=== PATIENT | female | born 1945 | race Caucasian/White ===

== ENCOUNTER → 2016-06-07 | Outpatient (CLI) | payer BC ==
[~2016-06-07] MED LIST: ALUMCHW2 PO; ANSHCCR; ASCO250C3 PO; CETI10CA PO; CHOL100010 PO; CYAN100020 PO; CYAN10004 PO; DEXA0.5S PO; DIPH25TA32 PO; DULO60CA44 PO; FAMOCHW27 PO; LEVAAER2 INH; LEVO150T9 PO; LEVO25TA PO; LINA1CAP PO; OXYM0.0592 NAE; PANT1TAB48 PO; POLYSOL4 OPB; PSEU60TA80 PO; SIME1CAP PO; SPRIN; THYR32.55 PO; TYLOTC500 PO; lactaid
--- NOTE | 2016-06-07 08:11 | DIAGNOSTIC IMAGING REPORT ---
ULTRASOUND RIGHT UPPER QUADRANT ABDOMEN CLINICAL HISTORY: Right upper quadrant abdominal pain. COMPARISON STUDY: Abdominal CT dated 07/12/2014. TECHNIQUE: Real-time, grayscale, and color flow sonography of the right upper quadrant of the abdomen was performed. Images are reviewed in the transverse and longitudinal planes. FINDINGS: Liver: The liver is top normal in size and demonstrates heterogeneously increased echotexture consistent with hepatic steatosis. Fatty sparing is seen adjacent to gallbladder fossa. There is no intrahepatic biliary ductal dilatation. The main portal vein is patent. Gallbladder: The gallbladder is normal in appearance. No gallstones are identified. There is no gallbladder wall thickening or pericholecystic fluid. A sonographic Decekr's sign is reportedly absent. The common bile duct measures up to 0.4 cm in diameter. Pancreas: Visualized portions of the pancreatic head and body are normal in appearance. Right kidney: Survey images of the right kidney demonstrate normal size and echotexture. There is no hydronephrosis. Ascites: None. IMPRESSION: 1. No acute sonographic abnormality is seen in the right upper quadrant. No gallstones are identified. 2. Hepatic steatosis. Electronically signed by: Franco Durham M.D. 06/07/2016 8:09 AM Dictated Date/Time: 06/07/2016 8:08 AM
== END | disposition home or self-care (01) ==
LOC: C.ULTR 07:43
PROVIDERS: ATTEND Family Medicine
DX: R10.11 Right upper quadrant pain (principal); K76.0 Fatty (change of) liver, not elsewhere classified

== ENCOUNTER → 2016-06-11 | Outpatient (CLI) | payer BC ==
[~2016-06-11] MED LIST changes: +SINCALIDE INJ 1.3 MCG in SODIUM CHLORIDE 0.9% 100ML 100 ML IV SCH
--- NOTE | 2016-06-11 10:16 | DIAGNOSTIC IMAGING REPORT ---
NUCLEAR MEDICINE HEPATOBILIARY STUDY WITH EJECTION FRACTION ANALYSIS. CLINICAL HISTORY: Right upper quadrant abdominal pain COMPARISON STUDY: Biliary ultrasound dated 06/07/2016 FINDINGS: The patient was injected with 5.3 mCi of technetium 99m Choletec. Sequential anterior imaging was performed. The gallbladder was first visualized on the 20 minute image. At 1 hour, the patient was administered 1.3 mcg of sincalide utilizing a 30 minute intravenous infusion. There is normal passage of activity into small bowel. The gallbladder ejection fraction is normal measuring 66%. IMPRESSION: Normal study. No evidence of cystic duct obstruction. Normal gallbladder ejection fraction of 66%. Electronically signed by: Santos Carlson M.D. 06/11/2016 10:15 AM Dictated Date/Time: 06/11/2016 10:13 AM
== END | disposition home or self-care (01) ==
LOC: C.NUCL 07:48
PROVIDERS: ATTEND Family Medicine
DX: R10.9 Unspecified abdominal pain (principal)

== ENCOUNTER → 2016-06-15 | Outpatient (CLI) | payer BC ==
[~2016-06-15] MED LIST changes: -SINCALIDE INJ 1.3 MCG in SODIUM CHLORIDE 0.9% 100ML 100 ML IV SCH
--- NOTE | 2016-06-15 12:51 | DIAGNOSTIC IMAGING REPORT ---
RIGHT CLAVICLE 2 VIEWS HISTORY: CLAVICLE PAIN Right COMPARISON: None. FINDINGS: There is no fracture or dislocation. Soft tissues are unremarkable. Mild AC joint arthropathy. IMPRESSION: No fractures within the right clavicle. Electronically signed by: Trenton Mcdaniels M.D. 06/15/2016 12:50 PM Dictated Date/Time: 06/15/2016 12:49 PM
== END | disposition home or self-care (01) ==
LOC: C.RADBC 12:27
PROVIDERS: ATTEND Family Medicine
DX: M89.8X1 Other specified disorders of bone, shoulder (principal)

== ENCOUNTER → 2016-08-02 | Outpatient (CLI) | payer BC ==
[~2016-08-02] MED LIST changes: +ACET-749 PO; +CHOL1000 PO; +DEXL60CA4 PO; +LEVA45AE INH; +LEVO112T4 PO; +ONDA4TAB10 SL; -SPRIN; +SPRIN INH
--- NOTE | 2016-08-02 16:19 | DIAGNOSTIC IMAGING REPORT ---
CHEST 2 VIEWS ROUTINE HISTORY: COUGH COMPARISON: Chest 10/06/2015. FINDINGS: The lungs remain hyperexpanded with apical predominant emphysematous changes. No new focal lung consolidations to suggest pneumonia. No evidence for pulmonary edema. The heart is normal in size. No pleural effusions. No pneumothorax. Possible 9 mm nodule within the periphery the right midlung zone. IMPRESSION: 1. No focal lung consolidations to suggest pneumonia. 2. Emphysema. 3. Possible 9 mm nodule within the right midlung zone. Follow-up nonemergent chest CT is recommended for confirmation. Electronically signed by: Trenton Mcdaniels M.D. 08/02/2016 4:17 PM Dictated Date/Time: 08/02/2016 4:15 PM
== END | disposition home or self-care (01) ==
LOC: C.RADBC 15:56
PROVIDERS: ATTEND Nurse Practitioner
DX: R05 Cough (principal)

== ENCOUNTER → 2016-08-24 | Outpatient (CLI) | payer BC ==
--- NOTE | 2016-08-24 12:52 | DIAGNOSTIC IMAGING REPORT ---
CHEST CT WITHOUT CONTRAST CT DOSE: 344.86 mGy.cm HISTORY: Nodule R91.8 Abnormal chest x-ray with multiple lung [id number] TECHNIQUE: Multiaxial CT images of the chest were performed without contrast. COMPARISON: Chest dated 08/02/2016 FINDINGS: The lungs are clear. The mediastinal vascular structures are within normal limits. No mediastinal or hilar lymphadenopathy. No pleural effusion or pneumothorax. Limited views of the upper abdomen demonstrate a normal liver and spleen. Chest film findings appear to relate to overlap artifact IMPRESSION: No acute process. Chest film findings are artifactual Electronically signed by: Omid Garrett M.D. 08/24/2016 12:51 PM Dictated Date/Time: 08/24/2016 12:50 PM
== END | disposition home or self-care (01) ==
LOC: C.CTS 12:35
PROVIDERS: ATTEND Internal Medicine Pulmonary Disease
DX: R91.8 Other nonspecific abnormal finding of lung field (principal)

== ENCOUNTER → 2016-09-20 | Day surgery (SDC) | payer BC ==
[2016-09-08 10:19] VITALS: Ht 162.6 cm; Wt 63.6 kg
[~2016-09-20] VITALS: Ht 162.6 cm; Wt 63.6 kg
[~2016-09-20] MED LIST changes: -ANSHCCR; -ASCO250C3 PO; -CYAN10004 PO; -DEXA0.5S PO; -DIPH25TA32 PO; -LEVO25TA PO; +LIDOCAINE HCL 2% 2 ML VIAL (20MG/ML) ONE; -LINA1CAP PO; -OXYM0.0592 NAE; -PANT1TAB48 PO; -POLYSOL4 OPB; +PROPOFOL IV EMULSION 10 MG/ML 20 ML VIAL IV ONE; +SODIUM CHLORIDE 0.9% 500ML 500 ML IV ONE; -THYR32.55 PO; -lactaid
[2016-09-20 13:29] VITALS: TEMP 36.6
--- NOTE | 2016-09-20 14:15 | Endo History and Physical ---
History & Physical Date of Service: Sep 20, 2016. Chief Complaint: Vila's F/U Referring Physician: Marina Lyn History of Present Illness 70 yo CF who presents for EGD secondary to Vila's esophagus. Past Medical History Endocrine Disorder, Reflux, COPD, Thyroid Disease Past Surgical History Hx Cardiac Surgery: No Hx Internal Defibrillator: No Hx Pacemaker: No Hx Abdominal Surgery: No Hx of Implantable Prosthesis: No Hx Post-Op Nausea and Vomiting: No Hx Cancer Surgery: No Hx Thoracic Surgery: No Hx Orthopedic: No Hx Urinary Tract Surgery: No Family History None Social History Smoking Status: Former Smoker Hx Substance Use: No Hx Alcohol Use: Yes (OCCASIONALLY A GLASS OF WINE) Allergies Coded Allergies: Moxifloxacin (Verified Allergy, Intermediate, TREMORS, 09/20/16) Gabapentin (Verified Allergy, Mild, DIZZINESS, 09/20/16) Amoxicillin (Verified Allergy, Unknown, ., 09/20/16) Pregabalin (Verified Allergy, Unknown, ., 09/20/16) dizzy blurry vision Homatropine (Verified Adverse Reaction, Mild, NAUSEA - DROWSINESS, 09/20/16 ) Hydrocodone (Verified Adverse Reaction, Mild, NAUSEA - DROWSINESS, 09/20/16 ) Albuterol (Verified Adverse Reaction, Unknown, MIGRAINES, 09/20/16) Dicyclomine (Verified Adverse Reaction, Unknown, DRY MOUTH DIZZINESS, 09/20) Current Medications Reported Home Medications Medications Dose Route/Sig Max Daily Dose Days Date Category Spiriva Handihaler (Tiotropium Argillite) 5 Puff/90 Mcg Aerp 09/20/16 Reported Zyrtec Allergy (Cetirizine Hcl) 10 Mg Cap 10 Mg PO DAILY 09/20/16 Reported Mucinex D (Pseudoephedrine-Guaifenesin) 1 Tab Tab 1 Tab PO QAM 10 09/08/16 Reported Pepcid Complete (Famotidine-Calcium Carbonate-M) 1 Chw Chw 1 Tab PO QPM 09/08/16 Reported Levothyroxine Sodium 150 Mcg Tab 1 Tab PO QAM 90 09/08/16 Reported Cymbalta (Duloxetine Hcl) 60 Mg Cap 60 Mg PO QAM 09/08/16 Reported Vitamin B12 (Cyanocobalamin) 1,000 Mcg Tab 1 Tab PO DAILY AT LUNCH 09/08/16 Reported Eq Gas Relief (Simethicone) 125 Mg Cap 1-2 Cap PO PRN 02/25/15 Reported Vitamin D (Cholecalciferol) 1,000 Inter.unit Tab 2 Cap PO QAM 02/25/15 Reported Gaviscon (Aluminum Hydroxide-Mag Trisil) 1 Chw Chw PO PRN 02/25/15 Reported Tylenol (Acetaminophen) 500 Mg Tab 1,000 Mg PO PRN PRN 05/21/14 Reported Xopenex Hfa (Levalbuterol) Inh 1-2 Puffs INH Q4H PRN 05/09/14 Reported Vital Signs Weight (Kilograms): 63.64 Height (Feet): 5 Height (Inches): 4 Date Time Temp Pulse Resp B/P (MAP) Pulse Ox O2 Delivery O2 Flow Rate FiO2 09/20/16 13:29 36.6 85 18 127/66 (86) 97 Room Air Physical Exam General Appearance: WD/WN, no apparent distress Respiratory/Chest: Auscultation: breath sounds normal Cardiovascular: Heart Auscultation: RRR Abdomen: Bowel Sounds: normal Inspection & Palpation: soft, non-distended, no tenderness, guarding & rebound Assessment and Plan Assessment: 70 yo CF who presents for EGD secondary to Vila's esophagus. Plan: Proceed with EGD.
--- NOTE | 2016-09-20 14:34 | Discharge Instructions ---
Endoscopy Patient Instructions Date / Procedure(s) Performed Sep 20, 2016. EGD Allergy Information Coded Allergies: Moxifloxacin (Verified Allergy, Intermediate, TREMORS, 09/20/16) Gabapentin (Verified Allergy, Mild, DIZZINESS, 09/20/16) Amoxicillin (Verified Allergy, Unknown, ., 09/20/16) Pregabalin (Verified Allergy, Unknown, ., 09/20/16) dizzy blurry vision Homatropine (Verified Adverse Reaction, Mild, NAUSEA - DROWSINESS, 09/20/16 ) Hydrocodone (Verified Adverse Reaction, Mild, NAUSEA - DROWSINESS, 09/20/16 ) Albuterol (Verified Adverse Reaction, Unknown, MIGRAINES, 09/20/16) Dicyclomine (Verified Adverse Reaction, Unknown, DRY MOUTH DIZZINESS, 09/20) Discharge Date / Findings Sep 20, 2016. Duodenal biopsies Gastritis s/p biopsies Hiatal hernia Vila's Esophagus s/p biopsies Schatzki's Ring s/p dilation Medication Instructions 1) Start Protonix 40mg by mouth each morning 1/2 hour prior to breakfast 2) Resume medications today as prescribed. Reported Home Medications Medications Dose Route/Sig Max Daily Dose Days Date Category Spiriva Handihaler (Tiotropium Burton) 5 Puff/90 Mcg Aerp 09/20/16 Reported Zyrtec Allergy (Cetirizine Hcl) 10 Mg Cap 10 Mg PO DAILY 09/20/16 Reported Mucinex D (Pseudoephedrine-Guaifenesin) 1 Tab Tab 1 Tab PO QAM 10 09/08/16 Reported Pepcid Complete (Famotidine-Calcium Carbonate-M) 1 Chw Chw 1 Tab PO QPM 09/08/16 Reported Levothyroxine Sodium 150 Mcg Tab 1 Tab PO QAM 90 09/08/16 Reported Cymbalta (Duloxetine Hcl) 60 Mg Cap 60 Mg PO QAM 09/08/16 Reported Vitamin B12 (Cyanocobalamin) 1,000 Mcg Tab 1 Tab PO DAILY AT LUNCH 09/08/16 Reported Eq Gas Relief (Simethicone) 125 Mg Cap 1-2 Cap PO PRN 02/25/15 Reported Vitamin D (Cholecalciferol) 1,000 Inter.unit Tab 2 Cap PO QAM 02/25/15 Reported Gaviscon (Aluminum Hydroxide-Mag Trisil) 1 Chw Chw PO PRN 02/25/15 Reported Tylenol (Acetaminophen) 500 Mg Tab 1,000 Mg PO PRN PRN 05/21/14 Reported Xopenex Hfa (Levalbuterol) Inh 1-2 Puffs INH Q4H PRN 05/09/14 Reported Provider Instructions Activity Restrictions - No exercising or heavy lifting for 24 hours. - Do not drink alcohol the day of the procedure. - Do not drive a car or operate machinery until the day after the procedure. - Do not make any important decisions or sign important papers in 24 hours after the procedure. Following Day: - Return to full activity which may include returning to work/school. Diet Start your diet with liquids and light foods (jello, soup, juice, toast). Then eat your usual diet if not nauseated. Treatment For Common After Affects For mild abdominal pain, bloating, or excessive gas: - Rest - Eat lightly - Lie on right side Follow-Up Information Follow-up with Marina Lyn as scheduled Anesthesia Information What You Should Know You have had a procedure that required some medicine to reduce anxiety and discomfort. This treatment is called moderate sedation. After receiving the treatment, you may be sleepy, but you will be able to breathe on your own. The effects of the treatment may last for several hours. Follow these instructions along with Activity/Diet recommendations noted above: * Do NOT do anything where dizziness or clumsiness would be dangerous. * Rest quietly at home today, then you can be up and about tomorrow. * Have a responsible person stay with you the rest of today. * You may have had an I.V. today. If so, you may take the dressing off later today. Recommendations Call your doctor if: * Trouble breathing * Continuous vomiting for more than 24 hours * Temperature above 101 degrees * Severe abdominal pain or bloating * Pain not relieved by pain medicine ordered * There is increased drainage or redness from any incision * A large amount of rectal bleeding greater than 2-3 tablespoons. (If you had a polyp/s removed or have hemorrhoids, a small amount of blood - from the rectum is to be expected.) * You have any unanswered questions or concerns. IN THE EVENT OF A SERIOUS EMERGENCY, GO TO THE NEAREST EMERGENCY ROOM Your discharge instructions were prepared by provider Baldemar Hackett. Patient Instructions Signature Page Florencia Nuernberger Patient (or Guardian) Signature/Date: I have read and understand the instructions given to me by my caregivers. Caregiver/RN/Doctor Signature/Date: The above-named patient and/or guardian has received patient instructions on this date. + Original Patient Signature Page (only) stays with chart. Please make copy for patient.
--- NOTE | 2016-09-20 14:44 | GI REPORT ---
Procedure Date: 09/20/2016 2:01 PM Procedure: Upper GI endoscopy Indications: Follow-up of Vila's esophagus Medicines: Monitored Anesthesia Care Complications: No immediate complications. Estimated Blood Loss: Estimated blood loss: none. Procedure: Pre-Anesthesia Assessment: - Prior to the procedure, a History and Physical was performed, and patient medications and allergies were reviewed. The patient's tolerance of previous anesthesia was also reviewed. The risks and benefits of the procedure and the sedation options and risks were discussed with the patient. All questions were answered, and informed consent was obtained. Prior Anticoagulants: The patient has taken no previous anticoagulant or antiplatelet agents. ASA Grade Assessment: III - A patient with severe systemic disease. After reviewing the risks and benefits, the patient was deemed in satisfactory condition to undergo the procedure. After obtaining informed consent, the endoscope was passed under direct vision. Throughout the procedure, the patient's blood pressure, pulse, and oxygen saturations were monitored continuously. The Scope was introduced through the mouth, and advanced to the second part of duodenum. The upper GI endoscopy was accomplished without difficulty. The patient tolerated the procedure well. Findings: There were esophageal mucosal changes consistent with short-segment Vila's esophagus present at the gastroesophageal junction. The maximum longitudinal extent of these mucosal changes was 2 cm in length. Mucosa was biopsied with a cold forceps for histology. One specimen bottle was sent to pathology. A mild Schatzki ring (acquired) was found at the gastroesophageal junction. A TTS dilator was passed through the scope. Dilation with an 18-19-20 mm balloon (to a maximum balloon size of 20 mm) dilator was performed. The dilation site was examined and showed mild improvement in luminal narrowing. A small hiatus hernia was present. Localized moderate inflammation characterized by erythema was found in the gastric antrum. Biopsies were taken with a cold forceps for histology. The examined duodenum was normal. Biopsies for histology were taken with a cold forceps for evaluation of celiac disease. Impression: - Esophageal mucosal changes consistent with short-segment Vila's esophagus. Biopsied. - Mild Schatzki ring. Dilated. - Small hiatus hernia. - Gastritis. Biopsied. - Normal examined duodenum. Biopsied. Recommendation: - Resume previous diet. - Use Protonix (pantoprazole) 40 mg PO daily. - Await pathology results. - Return to primary care physician as previously scheduled. Baldemar Hackett, 09/20/2016 2:43:57 PM This report has been signed electronically. Note Initiated On: 09/20/2016 2:01 PM I attest to the content of the Intraoperative Record and orders documented therein, exceptions below
[2016-09-20 14:59] VITALS: BP 120/74; PULSE 72; O2SAT 97
--- NOTE | 2016-09-20 15:08 | Anesthesiology Progress Note ---
Anesthesia Post Op Note Date & Time Sep 20, 2016 at 15:08 Vital Signs Pain Intensity: 0 Vital Signs Past 12 Hours Date Time Temp Pulse Resp B/P (MAP) Pulse Ox O2 Delivery O2 Flow Rate FiO2 09/20/16 14:59 72 18 120/74 (89) 97 Room Air 09/20/16 14:55 73 18 114/92 (99) 99 Room Air 09/20/16 14:32 75 18 106/58 (74) 98 Room Air 09/20/16 13:29 36.6 85 18 127/66 (86) 97 Room Air Notes Mental Status: alert / awake / arousable, participated in evaluation Pt Amnestic to Procedure: Yes Nausea / Vomiting: adequately controlled Pain: adequately controlled Airway Patency, RR, SpO2: stable & adequate BP & HR: stable & adequate Hydration State: stable & adequate Anesthetic Complications: no major complications apparent
== END | disposition home or self-care (01) ==
LOC: C.GI 13:01
PROVIDERS: ATTEND Internal Medicine
DX: K22.70 Barrett's esophagus without dysplasia (principal); K22.2 Esophageal obstruction; K44.9 Diaphragmatic hernia without obstruction or gangrene; K29.70 Gastritis, unspecified, without bleeding; K21.9 Gastro-esophageal reflux disease without esophagitis; J44.9 Chronic obstructive pulmonary disease, unspecified; E07.9 Disorder of thyroid, unspecified; Z87.891 Personal history of nicotine dependence; Z79.899 Other long term (current) drug therapy

== ENCOUNTER → 2017-01-25 | Outpatient (CLI) | payer BC ==
[~2017-01-25] MED LIST changes: -ACET-749 PO; -CHOL1000 PO; -DEXL60CA4 PO; -LEVA45AE INH; -LEVO112T4 PO; -LIDOCAINE HCL 2% 2 ML VIAL (20MG/ML) ONE; -ONDA4TAB10 SL; -PROPOFOL IV EMULSION 10 MG/ML 20 ML VIAL IV ONE; -SODIUM CHLORIDE 0.9% 500ML 500 ML IV ONE; +SPRIN; -SPRIN INH
--- NOTE | 2017-01-25 11:33 | DIAGNOSTIC IMAGING REPORT ---
R RIBS UNILATERAL WITH PA CHEST CLINICAL HISTORY: RIGHT RIB PAIN trauma COMPARISON STUDY: No previous studies for comparison. FINDINGS: The erect chest reveals no pneumothorax. There is no focal bony consolidation. No right-sided rib fractures are visualized. IMPRESSION: No evidence of pneumothorax. No right-sided rib fractures identified. Electronically signed by: Santos Carlson M.D. 01/25/2017 11:32 AM Dictated Date/Time: 01/25/2017 11:31 AM
== END | disposition home or self-care (01) ==
LOC: C.RADBC 10:43
PROVIDERS: ATTEND Family Medicine
DX: M54.9 Dorsalgia, unspecified (principal)

== ENCOUNTER 2017-02-24 12:32 | Emergency (ER) | payer BC ==
[~2017-02-24] VITALS: Ht 162.6 cm; Wt 70.4 kg
[~2017-02-24 12:32] MED LIST changes: -SPRIN; +SPRIN INH
[2017-02-24 12:42] VITALS: TEMP 37; Ht 162.6 cm; Wt 70.4 kg
--- NOTE | 2017-02-24 13:25 | EMERGENCY ROOM VISIT NOTE ---
ED Visit Note First contact with patient: 12:51 This Patient was discussed with the physician public aid eligibility assistant, Rogelio Alvarez PA-C. The pertinent historical and physical exam findings were confirmed. I agree with the studies ordered and with the interpretations of these studies. I agree with the disposition and care plan.
--- NOTE | 2017-02-24 13:40 | DIAGNOSTIC IMAGING REPORT ---
RIGHT ANKLE 3 VIEWS CLINICAL HISTORY: Fall with right ankle injury. FINDINGS: 3 views of the right ankle are obtained. No prior studies are available for comparison at the time of dictation. The skeletal structures are osteopenic. There is a comminuted and minimally distracted fracture through the distal fibular shaft. There is also a horizontally oriented fracture through the lateral malleolus. There is a distracted horizontally oriented fracture through the medial malleolus, with mild widening of the medial joint space which measures up to 4 mm. There is also a vertically oriented fracture through the posterior tibial plafond. There is a joint effusion, and significant soft tissue edema is present around the ankle. There is a large dorsal calcaneal enthesophyte. IMPRESSION: 1. Complex fractures of the distal tibia and fibula as above. 2. There is widening of the medial joint space. 3. Soft tissue swelling and joint effusion. Electronically signed by: Franco Durham M.D. 02/24/2017 1:38 PM Dictated Date/Time: 02/24/2017 1:36 PM
[2017-02-24] MEDS ORDERED: DEXL60CA4 PO (15:03)
[2017-02-24] MEDS ORDERED: CHOL1000 PO (15:03)
[2017-02-24] MEDS ORDERED: LEVO112T4 PO (15:04)
[2017-02-24] MEDS ORDERED: LEVA45AE INH (15:05)
[2017-02-24] MEDS ORDERED: ACET-749 PO (16:59)
[2017-02-24] MEDS ORDERED: ONDA4TAB10 SL (16:59)
[2017-02-24] MEDS ORDERED: TYLENOL #3 HOME PACK PO ONE (17:00)
[2017-02-24] MEDS ORDERED: ONDANSETRON HOME PACK 4MG OD TAB PO ONE (17:00)
[2017-02-24 17:35] VITALS: BP 117/82; PULSE 84; O2SAT 97
--- NOTE | 2017-02-24 20:25 | EMERGENCY ROOM VISIT NOTE ---
ED Visit Note First contact with patient: 12:51 Chief Complaint: My left ankle. History of Present Illness: Ms. Talbot is a 71-year-old white female who is brought into the ED via ambulance accompanied by her complaining of left ankle pain. EMS reports patient was picked up at her residence following a fall complaining of left ankle pain. They report patient was stable and had no acute changes en route. Patient is currently complaining of lateral ankle pain at the level of the malleolus and just inferior to the malleolus. She describes her pain as a constant pressure sensation. He rates her discomfort 8/10. Her pain is nonradiating. Her pain worsens with palpation of the lower leg, ankle and all movements of the ankle. She has not identified any alleviating factors related to the pain. She has not had any medication for pain prior to arrival at the hospital. Associated with her pain she reports a mild numbness sensation throughout her foot. She reports before her fall she was not experiencing any lightheadedness or dizziness, when she fell she did not strike her head or have a loss of consciousness and since the fall she is not having any headaches and denies all signs of head injury. Additionally she denies neck and back pain, chest pain and shortness of breath, nausea and vomiting, other extremity injury pains. Review of Systems: As noted above in history of present illness. All body systems were reviewed and found to be negative as noted above. Past Medical History: COPD, hypothyroidism, small fiber neuropathy, vulvar neoplasm, irritable bowel syndrome, umbilical hernia, hiatal hernia, Vila's esophagus, urethral diverticulum, liver cysts, small kidney, spinal stenosis, sciatica, B12 and vitamin D deficiency. Current Medications: Medications Dose Route/Sig Max Daily Dose Days Date Category Spiriva Handihaler (Tiotropium Pitcher) 5 Puff/90 Mcg Aerp 09/20/16 Reported Zyrtec Allergy (Cetirizine Hcl) 10 Mg Cap 10 Mg PO DAILY 09/20/16 Reported Mucinex D (Pseudoephedrine-Guaifenesin) 1 Tab Tab 1 Tab PO QAM 10 09/08/16 Reported Pepcid Complete (Famotidine-Calcium Carbonate-M) 1 Chw Chw 1 Tab PO QPM 09/08/16 Reported Levothyroxine Sodium 150 Mcg Tab 1 Tab PO QAM 90 09/08/16 Reported Cymbalta (Duloxetine Hcl) 60 Mg Cap 60 Mg PO QAM 09/08/16 Reported Vitamin B12 (Cyanocobalamin) 1,000 Mcg Tab 1 Tab PO DAILY AT LUNCH 09/08/16 Reported Eq Gas Relief (Simethicone) 125 Mg Cap 1-2 Cap PO PRN 02/25/15 Reported Vitamin D (Cholecalciferol) 1,000 Inter.unit Tab 2 Cap PO QAM 02/25/15 Reported Gaviscon (Aluminum Hydroxide-Mag Trisil) 1 Chw Chw PO PRN 02/25/15 Reported Tylenol (Acetaminophen) 500 Mg Tab 1,000 Mg PO PRN PRN 05/21/14 Reported Xopenex Hfa (Levalbuterol) Inh 1-2 Puffs INH Q4H PRN 05/09/14 Reported Allergies to Medications: Albuterol, amoxicillin, dicyclomine, gabapentin, homatropine, hydrocodone, moxifloxacin, pregabalin. Social History: Patient is not employed; she feels safe in her home environment ; she denies tobacco use. Physical Examination: Vital Signs: Date Time Temp Pulse Resp B/P (MAP) Pulse Ox O2 Delivery O2 Flow Rate FiO2 02/24/17 17:35 84 16 117/82 97 02/24/17 15:20 72 16 132/76 97 Room Air 02/24/17 13:44 78 16 124/65 97 Room Air 02/24/17 12:42 37.0 78 16 123/78 98 Room Air GENERAL: 71-year-old female in mild distress due to pain, nontoxic-appearing, afebrile and hemodynamically stable. NEUROLOGICAL: Awake, alert and oriented to person, place and time. Answering questions appropriately and following commands. Good hand eye coordination. Cranial nerves II through XII grossly intact. Good short-term and long-term recall. SKIN: Warm, dry and pink. Face: Some centimeters superficial laceration over the lateral aspect of the right orbit. No active bleeding. Left Foot: Subcentimeter superficial laceration over the dorsal aspect of the foot in the area of the fifth metacarpal. No active bleeding. HEENT: Atraumatic and normocephalic. Skull: No bony deformity, bony tenderness , swelling or ecchymosis. No raccoon's eyes or power signs. No drainage from the ears of the nostril; no hemotympanum. Face: No bony tenderness, swelling or ecchymosis. Soft tissue injury as noted above; patient does report when she fell her glasses fell off her face and struck the area of her laceration but she did not strike her face on the ground. PERRLA. EOMI without nystagmus. No malocclusion. Airway patent. No intraoral trauma. Speech normal and clear. Trachea midline. No jugular venous distention. BACK: No tenderness over the bony cervical, thoracic and lumbar spine. Full range of motion of the cervical spine. No CVA tenderness. THORAX: Lungs sounds are clear to auscultation and equal bilaterally with symmetrical chest wall. No crepitus, tenderness, subcutaneous air or deformities noted. HEART: Regular rate and rhythm. No gallops, rubs or murmurs are appreciated. ABDOMEN: Flat, soft and nontender. Positive bowel sounds in all quadrants. No guarding, rigidity or organomegaly. UPPER EXTREMITIES: No gross bony deformities. No tenderness over the shoulders , upper arms, elbows, forearms, wrists or hands. Moves all upper extremity joints well on command and with purpose. All distal neurovascular statuses are intact and equal bilaterally. LOWER EXTREMITY: No gross bony deformity. No tenderness over the hips, thighs, knees, lower legs and feet. Patient does have moderate tenderness over the left ankle with ecchymosis, bony deformity but no palpable crepitus. Tenderness extends over the distal fibula into the lateral malleolus and over the medial malleolus. I do not appreciate any bony crepitus at this time. She refuses to do range of motion exercises at the level of the ankle due to pain. Her feet were warm and pink and capillary refill is brisk. She is able to distinguish light sensations through all dermatomes. Distal pulses were present. On the right lower leg and ankle/foot there is no gross bony deformity and no swelling or ecchymosis. Once again distal pulses were intact and equal bilaterally and capillary refill is brisk. ED Course: Patient is assessed as noted above. Patient's medication list was reviewed. Right ankle x-rays: Shows a comminuted and mildly distracted fracture through the distal fibular shaft, heart is only oriented fracture through the lateral malleolus, distracted heart is only oriented fracture through the medial malleolus with mild widening of the medial joint space and a vertical oriented fracture through the posterior tibial plafond. Radiologist also notes a joint effusion and significant soft tissue swelling around the ankle. [facility] DARYL was contacted who recommended posterior ankle splint and nonweightbearing crutches. Patient was placed in an Ortho-Glass posterior ankle splint. I did try oil her on crutches and she did not 60. Because of her age and possible complications of an unstable fracture she had a physical therapy and occupational therapy evaluation for possible rehabilitation Hospital admission. After evaluation physical therapy felt the patient be discharged home with a walker with front wheels and they instructed on her ambulation around her residence as well as up and down stairs. Patient's case was reviewed with Dr. Holland; we agreed on diagnostic approach, treatment, disposition and plan. Patient was educated about today's findings and instructed on her treatment plan ; she verbalizes understanding and agreement with this plan. Clinical Impression: Complex fracture of the right ankle. Decision-Making: Initially my differential diagnosis I considered lower leg fracture, ankle fracture, foot fracture, ankle dislocation, foot dislocation, foot contusion and other causes. Disposition: Patient discharged home in stable condition accompanied by her ; prior to departure she was reassessed and subjectively reported she was feeling better and rated her discomfort 5/10. Plan: Comfort measures were discussed with the patient including rest, ice, elevation , splint and walker use and a sliding pain medication scale of acetaminophen and Tylenol No. 3. Patient was encouraged to contact [facility] for definitive care and treatment. Patient was encouraged to contact [facility] is she has difficulty at home with activities of daily living. Patient was encouraged return ED for uncontrolled pain, cold foot, blue foot, numbness or any new/concerning symptoms.
--- NOTE | 2017-02-27 11:31 | EDITING REQUIRED CODING QUERY ---
CODING QUERY Antonio MORRIS, To promote full compliance with coding requirements relating to patient care, provider participation is requested in all cases of cpc coder uncertainty. Please assist us with the question(s) below: Coding Question(s): History of Present Illness states patient has left ankle pain. Impression states patient has right ankle fracture. Please clarify laterality below. Physician's Response(s): the injury was to the right ankle Thank you Uvaldo Saunders Principal Diagnosis: "_that condition established after study, to be chiefly responsible for occasioning the admission of the patient to the hospital for care." Co-Existing Principal Diagnosis: "_when two or more diagnoses equally meet the criteria for principal diagnosis as determined by the circumstances of admission, diagnostic work up, and/or therapy provided, and the Alphabetic Index, Tabular List, or another coding guideline does not provide sequencing direction, any one of the diagnoses may be sequenced first." "When the physician has documented what appears to be a current diagnosis in the body of the record, but has not included the diagnosis in the final diagnostic statement, the physician should be asked whether the diagnosis should be added." ([facility] 2 QTR90. p3-4)
== END 2017-02-24 17:44 | disposition home or self-care (01) ==
LOC: EDBD 12:32 → C.EDC 12:33
DX: S82.891A Other fracture of right lower leg, initial encounter for closed fracture (principal); W19.XXXA Unspecified fall, initial encounter; J44.9 Chronic obstructive pulmonary disease, unspecified; E03.9 Hypothyroidism, unspecified; E55.9 Vitamin D deficiency, unspecified; E53.8 Deficiency of other specified B group vitamins; Z79.899 Other long term (current) drug therapy

== ENCOUNTER → 2017-06-21 | Outpatient (CLI) | payer BC ==
[~2017-06-21] MED LIST changes: +ACET-749 PO; -ALUMCHW2 PO; -CETI10CA PO; +CHOL1000 PO; -CHOL100010 PO; +DEXL60CA4 PO; -FAMOCHW27 PO; +LEVA45AE INH; -LEVAAER2 INH; +LEVO112T4 PO; -LEVO150T9 PO; +ONDA4TAB10 SL; -PSEU60TA80 PO; -SIME1CAP PO; -TYLOTC500 PO
--- NOTE | 2017-06-22 15:35 | MAMMOGRAPHY REPORT ---
BILATERAL DIGITAL SCREENING MAMMOGRAM TOMOSYNTHESIS WITH CAD: 06/21/2017 CLINICAL HISTORY: Routine screening. Patient has no complaints. TECHNIQUE: Breast tomosynthesis in addition to standard 2D mammography was performed. Current study was also evaluated with a Computer Aided Detection (CAD) system. COMPARISON: Comparison is made to exams dated: 02/23/2016 ultrasound, 02/23/2016 mammogram, 08/13/2015 mammogram, 09/05/2013 mammogram, 08/31/2012 mammogram, and 08/31/2011 mammogram - [facility]. BREAST COMPOSITION: There are scattered areas of fibroglandular density in both breasts. FINDINGS: No suspicious mass, architectural distortion or cluster of microcalcifications is seen. IMPRESSION: ACR BI-RADS CATEGORY 1: NEGATIVE There is no mammographic evidence of malignancy. A 1 year screening mammogram is recommended. The pa tient will receive written notification of the results. Approximately 10% of breast cancers are not detected with mammography. A negative mammographic report should not delay biopsy if a clinically suggestive mass is present. Staci dennis/oliva:06/21/2017 16:17:33 It Service Technician: Brianna MATHUR([place])(M), [facility] letter sent: Normal 1/2 BI-RADS Code: ACR BI-RADS Category 1: Negative
== END | disposition home or self-care (01) ==
LOC: C.MAMM 11:44
PROVIDERS: ATTEND Obstetrics & Gynecology
DX: Z12.31 Encounter for screening mammogram for malignant neoplasm of breast (principal)